=== PATIENT | female | born 1965 | race African-American/Black ===

== ENCOUNTER → 2023-05-26 16:12 | Outpatient (REF) | payer BC, SELFPAY | LOC: HWWDC 16:12 | PROVIDERS: ATTENDING PHYSICIAN Physician Assistant Surgical; FAMILY PHYSICIAN Family Medicine | DX: Z12.31 Encounter for screening mammogram for malignant neoplasm of breast (principal) | CPT/HCPCS: 77063; 77067 ==

== ENCOUNTER → 2023-08-10 07:33 | Outpatient (REF) | payer BC, SELFPAY | LOC: EMG 07:33 | PROVIDERS: ATTENDING PHYSICIAN Family Medicine | DX: R20.2 Paresthesia of skin (principal); R20.0 Anesthesia of skin | CPT/HCPCS: 95886; 95911 ==

== ENCOUNTER → 2024-05-27 16:31 | Outpatient (REF) | payer BC, SELFPAY | LOC: HWWDC 16:31 | PROVIDERS: ATTENDING PHYSICIAN Family Medicine; FAMILY PHYSICIAN Family Medicine | DX: Z12.31 Encounter for screening mammogram for malignant neoplasm of breast (principal) | CPT/HCPCS: 77063; 77067 ==